=== PATIENT | female | born 1970 | race Caucasian/White ===

== ENCOUNTER 2017-08-16 09:37 | Emergency (ER) | payer MEDICAID, OTHER ==
[2017-08-16 09:46] VITALS: BP 183/117; PULSE 120; RESP 18; TEMP 99.9; O2SAT 99
--- NOTE | 2017-08-16 09:59 | EDPHY ---
H & P Stated Complaint: COUGH AND CONGESTION FOR 3 DAYS, DENIES FEVERS Time Seen by Provider: 08/16/17 09:48 HPI/ROS: Chief Complaint: Cough, fever, congestion, body aches HPI: 46-year-old woman presenting with 2 and half days of dry nonproductive cough, body aches, nasal congestion, sore throat and chills. She has been taking ibuprofen and acetaminophen with some relief but her symptoms come back. Cough is nonproductive. No abdominal pain. Some mild nausea. No diarrhea or constipation. Mild headache. No urinary urgency or frequency. ROS: 10 point Review of Systems is negative except as noted in the HPI. PMH: Denies Social History: No smoking, no alcohol, no recreational drug use Family History: non-contributory Physical Exam: Gen: Awake, Alert, No Distress HEENT: Ears: Normal TMs Nose: no rhinorrhea Eyes: PERRLA, EOMI Mouth: Moist mucosa Neck: Supple, no JVD Chest: nontender, lungs clear to auscultation Heart: S1, S2 normal, no murmur Abd: Soft, non-tender, no guarding Back: no CVA tenderness, no midline tenderness Ext: no edema, non-tender Skin: no rash Neuro: CN II-XII intact, Sensation grossly intact, Strength 5/5 in bilateral upper and lower extremities - Personal History LMP (Females 10-55): 22-28 Days Ago - Medical/Surgical History Other PMH: Kidney stones. lithotripsy. renal stent. Foot surgery. tubal ligation - Social History Smoking Status: Never smoked Constitutional: Initial Vital Signs Temperature (C) 37.7 C 08/16/17 09:43 Heart Rate 120 H 08/16/17 09:43 Respiratory Rate 18 08/16/17 09:43 Blood Pressure 183/117 H 08/16/17 09:43 O2 Sat (%) 99 08/16/17 09:43 O2 Delivery Mode Room Air Allergies/Adverse Reactions: No Known Allergies Allergy (Unverified 08/16/17 09:43) Home Medications: Medication Instructions Recorded NK [No Known Home Meds] 08/16/17 Medical Decision Making ED Course/Re-evaluation: 46-year-old woman with flu-like symptoms. Her lungs are clear. Her oxygenation is excellent. She has no focal source of bacterial infection on examination. She does not meet CDC criteria for Tamiflu. She is outside of the initial treatment window and does not have any chronic medical conditions. We discussed this at length and also discussed the side effect profile and potential for improvement. She will be discharged with follow up with primary care physician. She knows to expect the symptoms should last about 7 days in total. She will return for worsening shortness of breath, uncontrolled fevers or chills, nausea or vomiting, or any other concerns. Departure - Departure Disposition: Home, Routine, Self-Care Clinical Impression: Flu-like symptoms Condition: Good Instructions: Viral Syndrome (ED) Additional Instructions: Alternate acetaminophen (1000 mg) with ibuprofen (400 mg) every 4 hours as needed for fevers, chills, aches or pain. Return to the emergency department for worsening difficulty breathing, uncontrolled fevers or chills, uncontrolled vomiting, or any other concerns. Expect symptoms to last for a total of about 7 days. Follow up with your primary care physician in 4-5 days if symptoms are not improving. Referrals: Chelle Kothari MD [Medical Doctor] - As per Instructions
== END 2017-08-16 10:04 | disposition home or self-care (01) ==
LOC: CED 09:37
DX: J11.1 Influenza due to unidentified influenza virus with other respiratory manifestations (principal)

== ENCOUNTER 2017-10-30 12:23 | Emergency (ER) | payer MEDICAID, OTHER ==
--- NOTE | 2017-10-30 13:17 | EDPHY ---
H & P Time Seen by Provider: 10/30/17 12:50 HPI/ROS: This patient inverted her right ankle when she missed a step taking the trash out at 8:00 a.m. This morning at home and fell to the ground. She felt immediate lateral ankle pain that persists. She took ibuprofen Tylenol immediately after the injury-800 mg of ibuprofen and a g of Tylenol. She reports that did improve her symptoms but has persistent 7/10 ache. She has difficulty bearing weight on the ankle since the injury. She denies any other injuries from the fall. She explains that this was actually recurrent injury. She inverted her right ankle while walking briskly at work but did not fall to the ground. She did hear a pop during that episode and reports some swelling. She did not seek medical attention for that injury but today's pain is significantly increased compared to her prior injury. Patient's female partner drove her here for evaluation. ROS: Neuro: No focal numbness tingling weakness Musculoskeletal: No other injuries. No gross deformity. Mild swelling lateral ankle. Integumentary: No lacerations abrasions from today's fall. 5 point ROS is otherwise negative Smoking Status: Never smoked Physical Exam: Physical Exam Vital signs are normal. General: No acute distress HEENT: Atraumatic. Eyes: Pupils equal and react to light. Extraocular motions are intact. Lungs: No respiratory distress. Cardiac: Brisk capillary refill is intact throughout. Pulses are 2+ and symmetric in the affected extremity. Skin: No rash or pallor. Musculoskeletal: Atraumatic normal except for right ankle Right ankle: Patient has mild swelling to the lateral malleolus with associated tenderness. No Achilles or medial ankle tenderness. No foot swelling or tenderness. No laxity on anterior drawer. She has increased pain with tilt the lateral aspect of her ankle. Neuro: Alert with no sensorimotor deficits in the affected ankle. Initial differential diagnosis: Ankle sprain, fracture, contusion Constitutional: Initial Vital Signs Temperature (C) 36.6 C 10/30/17 12:41 Heart Rate 78 10/30/17 12:41 Respiratory Rate 18 10/30/17 12:41 Blood Pressure 200/100 H 10/30/17 12:41 O2 Sat (%) 97 10/30/17 12:41 O2 Delivery Mode Room Air Allergies/Adverse Reactions: No Known Allergies Allergy (Unverified 08/16/17 09:43) Home Medications: Medication Instructions Recorded NK [No Known Home Meds] 08/16/17 MDM/Departure - MDM Imaging Results: Imaging Impressions Ankle X-Ray 10/30/17 12:40 Impression: Ankle sprain. Three-view Ankle x-ray: Negative for fracture by my interpretation Imaging: I viewed and interpreted images myself ED Course/Re-evaluation: Patient is placed in a Velcro ankle stirrup splint by our tech with my supervision. Patient is neurovascular intact post splint application I counseled patient regarding ankle sprain and explained rehab exercises and stretches. She is also provided with crutches. Discussion: Patient with grade 1 or 2 ankle sprain the anterior talofibular ligament without evidence of other significant injuries. She is neurovascularly intact. She will follow up with orthopedics-Dr. Evans if she is not improving with treatment plan. - Depart Disposition: Home, Routine, Self-Care Clinical Impression: Ankle sprain Qualifiers: Encounter type: initial encounter Involved ligament of ankle: anterior talofibular ligament Laterality: right Qualified Code(s): S93.491A - Sprain of other ligament of right ankle, initial encounter Condition: Good Instructions: Ankle Sprain (ED) Additional Instructions: Diagnosis: Ankle sprain Plan: Ibuprofen-400 600 mg per 6 hours as needed for pain and swelling. Ice 20 minutes at a time 3 times a day or more for the next few days. Stirrup splint whenever you're up and about until your symptoms resolve. Tylenol in addition if needed for pain. Use crutches initially until it no longer hurts to bear weight. Then start your ankle rehabilitation exercises to include "the alphabet", gentle ankle stretches in the 4 directions, and then manual resistance strengthening exercises in the 4 directions daily for the next several months. Call the orthopedic M.D. listed below to arrange a followup appointment if you' re not improving with the treatment plan over the next week or so. Stand Alone Forms: Work Excuse Referrals: Mayco Evans MD [Medical Doctor] - As per Instructions
[2017-10-30 13:45] VITALS: BP 185/62
== END 2017-10-30 13:43 | disposition home or self-care (01) ==
LOC: CED 12:23
DX: S93.491A Sprain of other ligament of right ankle, initial encounter (principal); X50.9XXA Other and unspecified overexertion or strenuous movements or postures, initial encounter; Y92.009 Unspecified place in unspecified non-institutional (private) residence as the place of occurrence of the external cause
CPT/HCPCS: 73610-PO; L4350